=== PATIENT | male | born 1990 | race Caucasian/White ===

== ENCOUNTER 2024-09-27 09:44 | Emergency (ER) | payer OTHER ==
[~2024-09-27] VITALS: Ht 172.7 cm; Wt 88.4 kg
[2024-09-27 09:50] VITALS: O2SAT 100
[2024-09-27 10:07] VITALS: BP 148/102; PULSE 118; RESP 16; TEMP 36.8; O2SAT 98
[2024-09-27] MEDS ORDERED: ACETAMINOPHEN 325MG TABLET PO ONE (11:15)
== END 2024-09-27 12:13 | disposition home or self-care (01) ==
LOC: ER 10:12
DX: J06.9 Acute upper respiratory infection, unspecified (principal)
CPT/HCPCS: 99281